=== PATIENT | female | born 1935 | race Caucasian/White ===

== ENCOUNTER 2023-04-11 17:33 | Inpatient (IN) | payer MEDICARE, OTHER ==
[~2023-04-11] VITALS: Ht 157.5 cm; Wt 63.5 kg
[2023-04-11] MEDS ORDERED: OLANZAPINE 10 MG VIAL IM ONE ×2 (20:26→20:30)
[2023-04-11 21:02] LABS: BASOPHILS % (AUTO) 0.6 % (0.0-2.0); EOSINOPHILS # (AUTO) 0.1 K/uL (0.0-0.7); EOSINOPHILS % (AUTO) 1.8 % (0.0-6.0); HEMATOCRIT 43 % (33-45); HEMOGLOBIN 14.1 g/dL (11.5-14.8); LYMPHOCYTES # (AUTO) 1.6 K/uL (0.8-4.8); LYMPHOCYTES % (AUTO) 25.1 % (20.0-44.0); MEAN CORPUSCULAR HEMOGLOBIN 30 PG (26.0-33.0); MEAN CORPUSCULAR HGB CONC 33 g/dl (31.0-36.0); MEAN CORPUSCULAR VOLUME 90 fL (82-100); MONOCYTES # (AUTO) 0.4 K/uL (0.1-1.30); MONOCYTES % (AUTO) 6.9 % (2.0-12.0); NEUTROPHILS # (AUTO) 4.3 K/uL (1.8-8.9); NEUTROPHILS % (AUTO) 65.6 % (43.0-81.0); PLATELET COUNT (AUTO) 190 K/uL (150-450); RED BLOOD CELL COUNT(AUTO) 4.76 MIL/uL (4.0-5.2); RED CELL DISTRIBUTION WIDTH 14.1 % (11.5-15.0); WHITE BLOOD COUNT (AUTO) 6.5 K/uL (4.3-11.0)
[2023-04-11 21:16] LABS: CALCIUM, SERUM 9.6 mg/dL (8.5-10.1); CREATININE 1.1 mg/dL (0.6-1.3); POTASSIUM 3.2 mmol/L (3.5-5.1)
[2023-04-11 21:23] LABS: ALBUMIN 3.8 g/dL (3.4-5.0); BILIRUBIN,DIRECT 0.2 mg/dL (0.0-0.2); BILIRUBIN,TOTAL 0.6 mg/dL (0.2-1.0); TOTAL PROTEIN, SERUM 7.8 g/dL (6.4-8.2)
[2023-04-11 21:24] LABS: LACTIC ACID 1.6 mmol/L (0.4-2.0)
[2023-04-11 21:29] LABS: INR 1.01 (0.91-1.10); PARTIAL THROMBOPLASTIN TIME 25.6 SEC (24.3-34.3); PROTHROMBIN TIME 10.6 SECS (9.2-11.1)
[2023-04-11 21:30] LABS: THYROID STIMULATING HORMONE 1.694 uIU/mL (0.358-3.74)
[2023-04-11] MEDS ORDERED: LORAZEPAM INJ 2 MG/ML VIAL IV ONE (22:30)
[2023-04-11] MEDS ORDERED: diphenhydrAMINE HCL 50 MG/ML VIAL IV ONE (22:30)
[2023-04-11] MEDS ORDERED: diphenhydrAMINE HCL 50 MG/ML VIAL ONE (22:34)
[2023-04-11] MEDS ORDERED: LORAZEPAM INJ 2 MG/ML VIAL ONE (22:34)
[2023-04-11 22:51] LABS: APPEARANCE,URINE CLEAR (CLEAR); BILIRUBIN,URINE NEGATIVE (NEGATIVE); BLOOD, URINE 1+ Ery/uL (NEGATIVE); COLOR,URINE YELLOW (YELLOW); KETONES,URINE NEGATIVE (NEGATIVE); LEUKOCYTE ESTERASE ,URINE 2+ (NEGATIVE); NITRITE, URINE POSITIVE (NEGATIVE); PH,URINE 7.5 (5.0-8.0); PROTEIN,URINE 2+ mg/dl (NEGATIVE); UGLUCOSE NEGATIVE (NEGATIVE); UROBILINOGEN,URINE 0.2 EU/dL (0.2)
[2023-04-11 22:52] LABS: ADD URINE CULTURE YES; BACTERIA,URINE Few /HPF (None Seen); RBC,URINE 0-2 /HPF (0-2); SQUAMOUS EPITHELIAL CELL,UR Rare /HPF (None Seen)
[2023-04-11] MEDS ORDERED: IV NS 0.9% 1,000 ML BAG IV ONE (23:00)
[2023-04-11] MEDS ORDERED: CEFTRIAXONE 1 G in IV D5W 50 ML IV ONE (23:00)
[2023-04-11] MEDS ORDERED: CEFTRIAXONE 1GM BAG (ER ONLY) 50 ML IV ONE (23:04)
[2023-04-11] MEDS ORDERED: ONDANSETRON HCL/PF 4 MG/2 ML VIAL IVP PRN (23:30)
[2023-04-12] MEDS: POTASSIUM CL. PREMIX PERIPHER. 50 ML IV SCH ×2 (01:14→02:16)
[2023-04-12] MEDS: IV NS 0.9% 1,000 ML IV PRN (01:15)
[2023-04-12] MEDS: ACETAMINOPHEN 325 MG TABLET PO PRN ×2 (01:21→16:24)
[2023-04-12] MEDS: ENOXAPARIN SODIUM 40 MG/0.4 ML DISP.SYRIN SQ SCH ×2 (01:22→23:09)
[2023-04-12 01:40] VITALS: BP 132/80; TEMP 97.8; O2SAT 95
[2023-04-12 06:06] LABS: BASOPHILS % (AUTO) 0.6 % (0.0-2.0); EOSINOPHILS # (AUTO) 0.2 K/uL (0.0-0.7); EOSINOPHILS % (AUTO) 3.9 % (0.0-6.0); HEMATOCRIT 39 % (33-45); HEMOGLOBIN 13.1 g/dL (11.5-14.8); LYMPHOCYTES # (AUTO) 1.4 K/uL (0.8-4.8); LYMPHOCYTES % (AUTO) 24.5 % (20.0-44.0); MEAN CORPUSCULAR HEMOGLOBIN 30 PG (26.0-33.0); MEAN CORPUSCULAR HGB CONC 33 g/dl (31.0-36.0); MEAN CORPUSCULAR VOLUME 89 fL (82-100); MONOCYTES # (AUTO) 0.5 K/uL (0.1-1.30); MONOCYTES % (AUTO) 9.2 % (2.0-12.0); NEUTROPHILS # (AUTO) 3.4 K/uL (1.8-8.9); NEUTROPHILS % (AUTO) 61.8 % (43.0-81.0); PLATELET COUNT (AUTO) 170 K/uL (150-450); RED BLOOD CELL COUNT(AUTO) 4.39 MIL/uL (4.0-5.2); RED CELL DISTRIBUTION WIDTH 14.1 % (11.5-15.0); WHITE BLOOD COUNT (AUTO) 5.6 K/uL (4.3-11.0)
[2023-04-12 06:29] LABS: CALCIUM, SERUM 8.9 mg/dL (8.5-10.1); CREATININE 1.1 mg/dL (0.6-1.3); MAGNESIUM 1.7 mg/dL (1.8-2.4); PHOSPHORUS 2.9 mg/dL (2.5-4.9); POTASSIUM 3.3 mmol/L (3.5-5.1)
[2023-04-12 08:00] VITALS: BP 146/95; TEMP 98.3; O2SAT 97
[2023-04-12] MEDS ORDERED: NA P133E RC (08:11)
[2023-04-12] MEDS ORDERED: MAG30ORA PO (08:11)
[2023-04-12] MEDS ORDERED: SENN-261 PO (08:11)
[2023-04-12] MEDS ORDERED: FERR325T23 PO (08:11)
[2023-04-12] MEDS ORDERED: DOCU-141 PO (08:11)
[2023-04-12] MEDS ORDERED: PANT40TA2 PO (08:11)
[2023-04-12] MEDS ORDERED: ROSU40TA PO (08:11)
[2023-04-12] MEDS ORDERED: AMLO-213 PO (08:11)
[2023-04-12] MEDS ORDERED: BISA10SU11 RC (08:11)
[2023-04-12] MEDS ORDERED: ACET-868 PO (08:11)
[2023-04-12] MEDS ORDERED: CLON0.1T PO (08:11)
[2023-04-12] MEDS ORDERED: MAGN400O6 PO (08:11)
[2023-04-12] MEDS ORDERED: ASPI-1169 PO (08:11)
[2023-04-12] MEDS ORDERED: METO50TA7 PO (08:11)
[2023-04-12] MEDS ORDERED: MAGNESIUM OXIDE 400 MG TABLET PO ONE (10:00)
[2023-04-12] MEDS ORDERED: POTASSIUM CHLORIDE 20 MEQ TAB.PRT.SR PO SCH (11:00)
[2023-04-12 16:00] VITALS: BP 135/81; TEMP 98.5; O2SAT 97
[2023-04-12] MEDS ORDERED: QUETIAPINE FUMARATE 25 MG TABLET PO PRN (17:30)
[2023-04-12] MEDS ORDERED: LORAZEPAM INJ 2 MG/ML VIAL IM ONE (18:00)
[2023-04-12 20:00] VITALS: BP 118/90; TEMP 97.5; O2SAT 97
[2023-04-12] MEDS: QUETIAPINE FUMARATE 25 MG TABLET PO SCH (20:23)
[2023-04-12] MEDS: CEFTRIAXONE 1 G in IV D5W 50 ML IV SCH (22:59)
[2023-04-13] MEDS: IV NS 0.9% 1,000 ML IV PRN (03:53)
[2023-04-13 06:26] LABS: BASOPHILS % (AUTO) 0.8 % (0.0-2.0); EOSINOPHILS # (AUTO) 0.2 K/uL (0.0-0.7); EOSINOPHILS % (AUTO) 4.6 % (0.0-6.0); HEMATOCRIT 41 % (33-45); HEMOGLOBIN 13.7 g/dL (11.5-14.8); LYMPHOCYTES % (AUTO) 19.5 % (20.0-44.0); MEAN CORPUSCULAR HEMOGLOBIN 30 PG (26.0-33.0); MEAN CORPUSCULAR HGB CONC 33 g/dl (31.0-36.0); MEAN CORPUSCULAR VOLUME 89 fL (82-100); MONOCYTES # (AUTO) 0.5 K/uL (0.1-1.30); MONOCYTES % (AUTO) 10.1 % (2.0-12.0); NEUTROPHILS # (AUTO) 3.5 K/uL (1.8-8.9); PLATELET COUNT (AUTO) 171 K/uL (150-450); RED BLOOD CELL COUNT(AUTO) 4.63 MIL/uL (4.0-5.2); RED CELL DISTRIBUTION WIDTH 14.3 % (11.5-15.0); WHITE BLOOD COUNT (AUTO) 5.3 K/uL (4.3-11.0)
[2023-04-13 06:36] LABS: CALCIUM, SERUM 9.5 mg/dL (8.5-10.1); CREATININE 0.9 mg/dL (0.6-1.3); POTASSIUM 3.7 mmol/L (3.5-5.1)
[2023-04-13 07:00] VITALS: BP 127/78; TEMP 98.6; O2SAT 96
[2023-04-13] MEDS: busPIRone 5 MG TABLET PO SCH ×2 (08:40→16:12)
[2023-04-13 16:00] VITALS: BP 148/70; TEMP 98.8; O2SAT 98
[2023-04-13 20:00] VITALS: BP 160/88; TEMP 97.8; O2SAT 96
[2023-04-13] MEDS: QUETIAPINE FUMARATE 25 MG TABLET PO SCH (20:33)
[2023-04-13] MEDS: CEFTRIAXONE 1 G in IV D5W 50 ML IV SCH (21:29)
[2023-04-13] MEDS: ENOXAPARIN SODIUM 40 MG/0.4 ML DISP.SYRIN SQ SCH (21:30)
[2023-04-14] MEDS: IV NS 0.9% 1,000 ML IV PRN ×2 (04:08→17:51)
[2023-04-14 08:00] VITALS: BP 150/78; TEMP 98.1; O2SAT 96
[2023-04-14] MEDS: busPIRone 5 MG TABLET PO SCH ×2 (09:10→17:34)
[2023-04-14 16:00] VITALS: BP 149/90; TEMP 98; O2SAT 98
[2023-04-14 20:00] VITALS: BP 135/81; TEMP 97.8; O2SAT 95
[2023-04-14] MEDS: QUETIAPINE FUMARATE 25 MG TABLET PO SCH (20:07)
[2023-04-14] MEDS: ENOXAPARIN SODIUM 40 MG/0.4 ML DISP.SYRIN SQ SCH (22:19)
[2023-04-14] MEDS: CEFTRIAXONE 1 G in IV D5W 50 ML IV SCH (22:20)
[2023-04-15 07:00] VITALS: BP 131/75; TEMP 98; O2SAT 96
[2023-04-15] MEDS: busPIRone 5 MG TABLET PO SCH ×2 (08:44→17:00)
[2023-04-15] MEDS ORDERED: BUSP5TAB3 PO (09:13)
[2023-04-15] MEDS ORDERED: Quetiapine Fumarate PO ×2 (09:13)
[2023-04-15 16:00] VITALS: BP 136/75; TEMP 98.3; O2SAT 99
[2023-04-15 20:00] VITALS: BP_SYST 135; BP_DIAS 73; BP_DIAS 78; TEMP 98.1; O2SAT 95
[2023-04-15] MEDS: QUETIAPINE FUMARATE 25 MG TABLET PO SCH (20:09)
[2023-04-15] MEDS: ENOXAPARIN SODIUM 40 MG/0.4 ML DISP.SYRIN SQ SCH (21:39)
[2023-04-15] MEDS: CEFTRIAXONE 1 G in IV D5W 50 ML IV SCH (21:40)
[2023-04-16] MEDS: IV NS 0.9% 1,000 ML IV PRN (02:17)
[2023-04-16 07:00] VITALS: BP 149/80; TEMP 97.5; O2SAT 97
[2023-04-16] MEDS: busPIRone 5 MG TABLET PO SCH (09:30)
== END 2023-04-16 15:50 | DRG 689 ==
LOC: ER 18:02 → MED 23:47
PROVIDERS: ADMIT Nurse Practitioner Acute Care; ATTEND Nurse Practitioner Acute Care
DX: N39.0 Urinary tract infection, site not specified (principal); G93.41 Metabolic encephalopathy; F03.92 Unspecified dementia, unspecified severity, with psychotic disturbance; F05 Delirium due to known physiological condition; D68.69 Other thrombophilia; E86.0 Dehydration; N18.9 Chronic kidney disease, unspecified; E87.6 Hypokalemia; E66.9 Obesity, unspecified; Z20.822 Contact with and (suspected) exposure to COVID-19; F29 Unspecified psychosis not due to a substance or known physiological condition; F03.90 Unspecified dementia, unspecified severity, without behavioral disturbance, psychotic disturbance, mood disturbance, and anxiety; Z68.25 Body mass index [BMI] 25.0-25.9, adult; B96.4 Proteus (mirabilis) (morganii) as the cause of diseases classified elsewhere
CPT/HCPCS: 36415; 70450-TC; 71045-TC; 72131-TC; 80048-TC; 80076-TC; 81001; 83605-TC; 83735-TC; 84100-TC; 84443-TC; 85025-TC; 85730-TC; 87040-TC; 87081-TC; 87086-TC; 97110-TC; 97116-TC; 97530-TC; A4223; C9803; G0378; J0696; J1200; J1650; J2060; J3480; J3490; J7030; J7050; J7060